=== PATIENT | male | born 1955 | race Caucasian/White ===

== ENCOUNTER 2019-02-25 13:34 | Inpatient (IN) | payer MEDICAID ==
[~2019-02-25] VITALS: Ht 167.6 cm; Wt 71.2 kg
[2019-02-25 15:44] LABS: BASOPHILS % 0.3 % (0.0-2.0); EOSINOPHILS % 0.6 % (0.0-5.0); HEMATOCRIT. 46.4 % (42.0-52.0); LYMPHOCYTES % 13.6 % (20.0-50.0); MEAN CORPUSCULAR HEMOGLOBIN 28.5 pg (28.0-32.0); MEAN CORPUSCULAR VOLUME 82.6 fL (80.0-94.0); MEAN PLATELET VOLUME 7.8 fl (7.4-10.4); MONOCYTES % 6.1 % (2.0-8.0); NEUTROPHILS % 79.4 % (40.0-76.0); PLATELET 273 x1000/uL (130-400); RED BLOOD CELL COUNT 5.61 mill/uL (4.7-6.1); RED CELL DISTRIBUTION WIDTH 13.7 % (11.6-14.6)
[2019-02-25 15:50] LABS: CHLORIDE 102 mEq/L (98-107)
[2019-02-25 15:52] LABS: PROTHROMBIN TIME 10.5 sec (9.6-11.0)
[2019-02-25 15:53] LABS: ETHANOL BLOOD < 10 mg/dL
[2019-02-25 15:57] LABS: LDL CHOLESTEROL 152 mg/dL (5-100)
[2019-02-25 19:14] LABS: CLARITY URINE CLEAR (CLEAR); COLOR URINE YELLOW (YELLOW); KETONES URINE NEGATIVE (NEGATIVE); LEUKOCYTE ESTERASE URINE NEGATIVE (NEGATIVE); NITRITE URINE NEGATIVE (NEGATIVE); OCCULT BLOOD URINE NEGATIVE (NEGATIVE); PH URINE 7.5 (4.5-8.0); PROTEIN URINE NEGATIVE (NEGATIVE); SPECIFIC GRAVITY URINE 1.009 (1.005-1.030); UROBILINOGEN URINE 0.2 E.U./dL (0.2-1.0)
[2019-02-25 19:27] LABS: *AMPHETAMINES SCREEN URINE NEGATIVE (NEGATIVE); *BARBITURATES SCREEN URINE NEGATIVE (NEGATIVE); *BENZODIAZEPINES SCREEN URINE NEGATIVE (NEGATIVE); *COCAINE SCREEN URINE NEGATIVE (NEGATIVE); METHADONE URINE SCREEN NEGATIVE (NEGATIVE); OPIATES URINE SCREEN NEGATIVE (NEGATIVE); PHENCYCLIDINE URINE SCREEN NEGATIVE (NEGATIVE)
[2019-02-25 19:28] LABS: CANNABINOID URINE SCREEN NEGATIVE (NEGATIVE)
[2019-02-25 20:00] VITALS: BP 163/89
[2019-02-25] MEDS ORDERED: ACETAMINOPHEN 325MG TABLET PO PRN (20:45)
[2019-02-25] MEDS: ASPIRIN 81MG TABLET PO SCH (21:39)
[2019-02-25] MEDS: ONDANSETRON HCL 4MG/2ML INJ IV PRN (21:39)
[2019-02-25] MEDS: CLONIDINE 0.1MG TABLET PO PRN (21:39)
[2019-02-25] MEDS: ATORVASTATIN CALCIUM 40MG TABLET PO SCH (21:39)
[2019-02-25] MEDS: ENOXAPARIN 40MG/0.4ML SYR SUBCUT SCH (21:40)
[2019-02-25] MEDS: LEVOFLOXACIN 500MG PREMIX 100 ML IV SCH (22:00)
[2019-02-25 22:30] VITALS: BP 163/89
[2019-02-25] MEDS: SODIUM CHLORIDE 0.9% 1,000 ML IV SCH (23:03)
[2019-02-26] VITALS: BP 128/60
[2019-02-26] MEDS ORDERED: IBUP-2271 MT (00:31)
[2019-02-26] MEDS ORDERED: AMLO10TA80 MT (00:31)
[2019-02-26 04:00] VITALS: BP 125/79
[2019-02-26 07:20] LABS: BASOPHILS % 0.4 % (0.0-2.0); EOSINOPHILS % 1.5 % (0.0-5.0); HEMATOCRIT. 41.7 % (42.0-52.0); HEMOGLOBIN. 14.8 g/dL (14.0-18.0); MEAN CORPUSCULAR HEMOGLOBIN 29.3 pg (28.0-32.0); MEAN CORPUSCULAR VOLUME 82.6 fL (80.0-94.0); MEAN PLATELET VOLUME 8.1 fl (7.4-10.4); MONOCYTES % 7.6 % (2.0-8.0); NEUTROPHILS % 60.5 % (40.0-76.0); PLATELET 260 x1000/uL (130-400); RED BLOOD CELL COUNT 5.05 mill/uL (4.7-6.1)
[2019-02-26 07:58] LABS: CHLORIDE 106 mEq/L (98-107)
[2019-02-26 08:00] VITALS: BP 130/83
[2019-02-26] MEDS: ASPIRIN 81MG TABLET PO SCH (08:40)
[2019-02-26] MEDS: SODIUM CHLORIDE 0.9% 1,000 ML IV SCH (11:22)
[2019-02-26] MEDS: ONDANSETRON HCL 4MG/2ML INJ IV PRN (11:26)
[2019-02-26 12:00] VITALS: BP 134/82
[2019-02-26] MEDS: MECLIZINE 12.5MG TABLET PO PRN (14:03)
[2019-02-26 16:00] VITALS: BP 129/81
[2019-02-26] MEDS ORDERED: POTASSIUM CHLORIDE 10MEQ TABLET SR PO NR (17:19)
[2019-02-26 20:00] VITALS: BP 135/80
[2019-02-26] MEDS: ATORVASTATIN CALCIUM 40MG TABLET PO SCH (21:33)
[2019-02-26] MEDS: ENOXAPARIN 40MG/0.4ML SYR SUBCUT SCH (21:33)
[2019-02-26] MEDS: LEVOFLOXACIN 500MG PREMIX 100 ML IV SCH (21:33)
[2019-02-26] MEDS: TRIAMTERENE/HYDROCHLOROTHIAZIDE 37.5/25MG CAPSULE PO SCH (21:36)
[2019-02-27] VITALS: BP 143/82
[2019-02-27] MEDS: SODIUM CHLORIDE 0.9% 1,000 ML IV SCH ×2 (01:56→15:20)
[2019-02-27 04:00] VITALS: BP 138/90
[2019-02-27 08:00] VITALS: BP 137/88
[2019-02-27] MEDS: MECLIZINE 12.5MG TABLET PO PRN (08:58)
[2019-02-27] MEDS: TRIAMTERENE/HYDROCHLOROTHIAZIDE 37.5/25MG CAPSULE PO SCH (08:58)
[2019-02-27] MEDS: ASPIRIN 81MG TABLET PO SCH (08:58)
[2019-02-27 12:00] VITALS: BP 158/92
[2019-02-27 16:00] VITALS: BP 131/83
[2019-02-27 20:00] VITALS: BP 158/93
[2019-02-27] MEDS: ENOXAPARIN 40MG/0.4ML SYR SUBCUT SCH (20:30)
[2019-02-27] MEDS: ATORVASTATIN CALCIUM 40MG TABLET PO SCH (20:30)
[2019-02-27] MEDS: LEVOFLOXACIN 500MG PREMIX 100 ML IV SCH (20:31)
[2019-02-28] VITALS: BP 149/91
[2019-02-28 04:00] VITALS: BP 142/81
[2019-02-28] MEDS: SODIUM CHLORIDE 0.9% 1,000 ML IV SCH (05:42)
[2019-02-28 08:00] VITALS: BP 143/89
[2019-02-28] MEDS: ASPIRIN 81MG TABLET PO SCH (09:14)
[2019-02-28] MEDS: TRIAMTERENE/HYDROCHLOROTHIAZIDE 37.5/25MG CAPSULE PO SCH (09:14)
[2019-02-28 12:00] VITALS: BP 166/95
[2019-02-28] MEDS: CLONIDINE 0.1MG TABLET PO PRN (12:47)
[2019-02-28 13:44] VITALS: BP 166/95
== END 2019-02-28 14:47 | disposition home or self-care (01) | DRG 723 ==
LOC: ER 13:34 → 8WST 17:21 → EDBEDREQSVC 17:24 → EDBEDREQ 17:24 → EDBEDREQTM 17:24 → ENRESERV 19:09
PROVIDERS: ADMIT Internal Medicine; ATTEND Internal Medicine
DX: B34.9 Viral infection, unspecified (principal); D72.829 Elevated white blood cell count, unspecified; I10 Essential (primary) hypertension; E78.5 Hyperlipidemia, unspecified; R29.6 Repeated falls; Z79.899 Other long term (current) drug therapy
CPT/HCPCS: 36415; 70551; 71045; 80048; 80061; 80305; 80320; 81003; 82962; 83721; 83880; 84443; 84484; 93005; 93970; 97161; 99285; J1650; J1956; J2405; J7030; J8597; G0480